=== PATIENT | male | born 1940 | race Caucasian/White ===

== ENCOUNTER → 2016-11-10 | Outpatient (CLI) | payer OTHER, BC ==
[~2016-11-10] MED LIST: CENTRUM SILVER1 EAC5 PO; COZAAR50 MG PO; FLOMAX0.4 MG PO; HYDROCODONE CO120 ML PO; LIPITOR40 MG PO; LISINOPRIL PO; LO-DOSE ASPIRIN81 M1 PO; LOSARTAN POTASS25 MG PO; MAGIC MOUTHWASH PO; OCUVITE TABLET1 EACH PO; PEPCID20 MG PO; PROSCAR5 MG PO; PROTONIX40 MG PO; SYNTHROID100 MCG PO; TOPROL XL25 MG PO; TOPROL XL50 MG PO
[2016-11-10 09:56] LABS: TYPE OF FLUID PLEURAL
[2016-11-10 10:10] LABS: BODY FLUID RBC'S 69000 /MM^3 (0-100); BODY FLUID WBC'S 1030 /MM^3 (0-500)
[2016-11-10 10:42] LABS: BODY FLUID LDH 233 IU/L; BODY FLUID PROTEIN 4.2 G/DL
[2016-11-10 11:09] LABS: BODY FLUID EOSINOPHILS 21 % (0-25); MONO RAW COUNT 76; MONONUCLEAR WBC'S 76 %; POLY RAW COUNT 3; POLYNUCLEAR WBC'S 3 % (0-25)
== END | disposition home or self-care (01) ==
LOC: RAD 08:45 → EDSTATUS 09:00
PROVIDERS: Internal Medicine Pulmonary Disease
PROC: 0W9B3ZZ Drainage of Left Pleural Cavity, Percutaneous Approach (ICD-10-PCS; principal; 2016-11-10)
DX: J90 Pleural effusion, not elsewhere classified (principal)
CPT/HCPCS: 71010; 82945; 83615 91; 84157; 87070; 87075; 87205; 88108; 89051

== ENCOUNTER → 2016-12-04 | Outpatient (CLI) | payer OTHER, BC | END | disposition home or self-care (01) | LOC: RAD 08:45 → EDSTATUS 09:00 → RAD 09:00 | PROC: 0W9B3ZZ Drainage of Left Pleural Cavity, Percutaneous Approach (ICD-10-PCS; principal; 2016-12-04) | DX: J90 Pleural effusion, not elsewhere classified (principal) | CPT/HCPCS: 88108; 88305 ==

== ENCOUNTER 2017-02-02 08:42 | Observation (INO) | payer OTHER, BC ==
[~2017-02-02] VITALS: Ht 172.7 cm; Wt 79.5 kg
[2017-02-02 09:49] LABS: CHLORIDE 102 mEq/L (99-109); POTASSIUM 3.7 mEq/L (3.7-5.4); SODIUM 141 mEq/L (136-147)
[2017-02-02 09:53] LABS: ANION GAP 13 MEQ/L (2-14); TOTAL BILIRUBIN 0.5 mg/dL (0.0-1.0)
[2017-02-02 09:55] LABS: ALKALINE PHOSPHATASE 48 IU/L (3-129); GFR ESTIMATE (CALCULATED) > 59 mL/min/
[2017-02-02 09:56] LABS: UREA NITROGEN (BUN) 16 mg/dL (9-23)
[2017-02-02 10:12] LABS: HEMATOCRIT 41.2 % (38.0-50.0); MCH 26.7 PG (29.0-34.0); MCHC 30.8 G/DL (30.0-36.0); MCV 86.7 FL (86-99); MEAN PLAT.VOLUME 8.2 uM^3 (9.0-12.4); PLATELET COUNT 262 K/uL (156-360); RBC DIS.WIDTH-CV 14.4 % (11.8-14.6); RBC DIS.WIDTH-SD 46.1 % (39-53); RED BLOOD COUNT 4.75 M/uL (4.00-5.50); WHITE BLOOD COUNT 8.5 K/uL (4.1-10.2)
[2017-02-02 10:18] LABS: GLUCOSE 119 mg/dL (70-99)
[2017-02-02 11:51] LABS: ADD MIUA? YES; BILIRUBIN NEGATIVE; BLOOD NEGATIVE; COLOR YELLOW ((YELLOW)); GLUCOSE (STRIP) NEGATIVE; KETONES 20; LEUKOCYTES NEGATIVE; NITRITE NEGATIVE; PROTEIN (STRIP) 30; UROBILINOGEN 0.2 MG/DL (0.2-1.0)
[2017-02-02 11:54] LABS: BACTERIA NONE SEEN /HPF; EPITHELIAL CELLS RARE /HPF; MUCUS TRACE /LPF; UCUL ADDED? NO; WHITE BLOOD CELLS 0-5 /HPF (0-5)
[2017-02-02] MEDS ORDERED: COZAAR25 MG PO (13:26)
[2017-02-02] MEDS ORDERED: CARVEDILOL6.25 MG PO (13:27)
[2017-02-02] MEDS ORDERED: PROTONIX20 MG PO (13:27)
[2017-02-02 14:57] VITALS: BP 132/79
[2017-02-02 20:00] VITALS: BP 132/99
[2017-02-02 20:27] LABS: HEMATOCRIT 40.8 % (38.0-50.0); MCV 86.6 FL (86-99)
[2017-02-03] VITALS: BP 138/84
[2017-02-03 04:00] VITALS: BP 119/78
[2017-02-03 08:23] LABS: HEMATOCRIT 37.2 % (38.0-50.0); MCV 88.6 FL (86-99)
[2017-02-03 09:45] VITALS: BP 122/75
[2017-02-03 11:27] VITALS: BP 125/81
[2017-02-03] MEDS ORDERED: REGLAN10 MG PO (14:15)
== END 2017-02-03 17:18 | disposition home or self-care (01) ==
LOC: EME 08:42 → 5WEST 13:50 → EDOF 14:01 → 5WEST 14:48
PROVIDERS: Emergency Medicine; Internal Medicine
DX: K92.0 Hematemesis (principal); K44.9 Diaphragmatic hernia without obstruction or gangrene; K21.9 Gastro-esophageal reflux disease without esophagitis; I10 Essential (primary) hypertension; N40.0 Benign prostatic hyperplasia without lower urinary tract symptoms; Z85.21 Personal history of malignant neoplasm of larynx; Z93.0 Tracheostomy status
CPT/HCPCS: 71020; 74020; 74177; 80053; 81003; 85014; 85018; 85027; 93005; 94644; 94799; 99281; 99285; C9113; G0378; J2405; J2765; J7030; J7042

== ENCOUNTER 2017-02-09 09:32 | Emergency (ER) | payer OTHER, BC ==
[~2017-02-09 09:32] MED LIST changes: +CARVEDILOL6.25 MG PO; +COZAAR25 MG PO; +PROTONIX20 MG PO; +REGLAN10 MG PO
== END 2017-02-09 09:50 | disposition left against medical advice (07) ==
LOC: EME 09:32
DX: R11.2 Nausea with vomiting, unspecified (principal); Z53.21 Procedure and treatment not carried out due to patient leaving prior to being seen by health care provider

== ENCOUNTER → 2017-04-03 | Outpatient (CLI) | payer OTHER, BC ==
[~2017-04-03] MED LIST changes: +AMOXICILLIN500 MG PO; +ASPIR 8181 M1 PO; +ATIVAN0.5 MG PO; +COREG3.125 M1 PO; +GAS-X125 M1 PO; +MIRALAX17 GM PO; +PERCOCET 5/31 TABLET PO; +TYLENOL PM1 CAPLET PO
== END | disposition home or self-care (01) ==
LOC: OPR 08:48 → EDSTATUS 09:00 → OPR 09:00
DX: C32.9 Malignant neoplasm of larynx, unspecified (principal); C78.2 Secondary malignant neoplasm of pleura; E78.5 Hyperlipidemia, unspecified; E03.9 Hypothyroidism, unspecified; I10 Essential (primary) hypertension; R91.1 Solitary pulmonary nodule; Z82.49 Family history of ischemic heart disease and other diseases of the circulatory system; Z82.61 Family history of arthritis; Z80.0 Family history of malignant neoplasm of digestive organs; Z79.82 Long term (current) use of aspirin
CPT/HCPCS: 77012; 85027; 85610; 85730; 88305; 88341 TC; 88342 TC; J3010

== ENCOUNTER → 2017-05-01 | Outpatient (CLI) | payer OTHER, BC ==
[~2017-05-01] MED LIST changes: +ROXICODONE5 MG PO; +TYLENOL EXTRA500 MG PO
== END | disposition home or self-care (01) ==
LOC: RAD 08:55 → EDSTATUS 09:00
PROC: 0W9B3ZZ Drainage of Left Pleural Cavity, Percutaneous Approach (ICD-10-PCS; principal; 2017-05-01)
DX: J90 Pleural effusion, not elsewhere classified (principal); C79.9 Secondary malignant neoplasm of unspecified site; C80.1 Malignant (primary) neoplasm, unspecified
CPT/HCPCS: 76942

== ENCOUNTER 2017-05-15 16:06 | Inpatient (IN) | payer OTHER, BC ==
[~2017-05-15] VITALS: Ht 170.2 cm; Wt 76.4 kg
[2017-05-15 17:39] LABS: HEMATOCRIT 38.1 % (38.0-50.0); MCH 26.9 PG (29.0-34.0); MCHC 31.2 G/DL (30.0-36.0); MCV 86.2 FL (86-99); MEAN PLAT.VOLUME 8.5 uM^3 (9.0-12.4); PLATELET COUNT 195 K/uL (156-360); RBC DIS.WIDTH-CV 14.8 % (11.8-14.6); RBC DIS.WIDTH-SD 46.6 % (39-53); RED BLOOD COUNT 4.42 M/uL (4.00-5.50)
[2017-05-15 17:41] LABS: WHITE BLOOD COUNT 1.4 K/uL (4.1-10.2)
[2017-05-15 17:51] LABS: TROP-I INTERPRETATION NEGATIVE; TROPONIN-I < 0.01 ng/mL (0.0-0.30)
[2017-05-15 18:12] LABS: ADD MIUA? NO; BILIRUBIN NEGATIVE; BLOOD NEGATIVE; COLOR YELLOW ((YELLOW)); GLUCOSE (STRIP) NEGATIVE; KETONES 20; LEUKOCYTES NEGATIVE; NITRITE NEGATIVE; PROTEIN (STRIP) 30; SPECIFIC GRAVITY 1.021 (1.000-1.030); UCUL ADDED? NO; UROBILINOGEN 0.2 MG/DL (0.2-1.0)
[2017-05-15 18:34] LABS: ABS NEUTROPHIL COUNT 0.8; ANISOCYTOSIS 1+; ATYPICAL LYMPHOCYTE 10.8 %; BAND NEUTROPHILS 5.4 % (0-8.0); EOSINOPHIL ABS CT 0.1; EOSINOPHILS 5.4 % (0-5.0); HYPOCHROMASIA 1+; INSTRUMENT ABS NEUTROPHIL CT 0.6 K/uL; LYMPHOCYTES 21.6 % (15.0-45.0); METAMYELOCYTES 0.9 %; PLAT.SUFFICIENCY ADEQUATE; SEG.NEUTROPHILS 51.4 % (46.0-76.0)
[2017-05-15] MEDS ORDERED: PROTONIX40 M1 PO (20:58)
[2017-05-15] MEDS ORDERED: CIPROFLOXACIN500 M1 PO (21:00)
[2017-05-15] MEDS ORDERED: PROMETHAZINE12.5 M1 PO (21:01)
[2017-05-15] MEDS ORDERED: DRONABINOL2.5 MG PO (21:02)
[2017-05-15] MEDS ORDERED: IMODIUM A-D2 M2 PO (21:03)
[2017-05-15] MEDS ORDERED: DERMACINRX EMP1 EACH TP (21:03)
[2017-05-15 22:12] LABS: CHLORIDE 103 mEq/L (99-109); POTASSIUM 4.3 mEq/L (3.7-5.4); SODIUM 138 mEq/L (136-147)
[2017-05-15 22:14] LABS: GLUCOSE 92 mg/dL (70-99)
[2017-05-15 22:15] LABS: ANION GAP 9 MEQ/L (2-14)
[2017-05-15 22:16] LABS: TOTAL BILIRUBIN 0.6 mg/dL (0.0-1.0)
[2017-05-15 22:18] LABS: ALKALINE PHOSPHATASE 50 IU/L (3-129); GFR ESTIMATE (CALCULATED) > 59 mL/min/
[2017-05-15 22:19] LABS: UREA NITROGEN (BUN) 9 mg/dL (9-23)
[2017-05-15 22:51] VITALS: BP 133/76
[2017-05-16 00:26] VITALS: BP 118/79
[2017-05-16 06:53] LABS: ANION GAP 9 MEQ/L (2-14); CHLORIDE 104 MEQ/L (99-109); GFR ESTIMATE (CALCULATED) > 59 mL/min/; GLUCOSE 81 mg/dL (70-99); POTASSIUM 4.4 MEQ/L (3.7-5.4); SAMPLE HEMOLYSIS CHECK 0; SAMPLE ICTERIC CHECK 0; SAMPLE LIPEMIA CHECK 0; SODIUM 139 MEQ/L (136-147); UREA NITROGEN (BUN) 8 mg/dL (9-23)
[2017-05-16 07:32] LABS: INTERNAL CONTROL VALID? YES
[2017-05-16 07:34] VITALS: BP 124/89
[2017-05-16 08:33] LABS: C DIFF TOXIN NEGATIVE (NEGATIVE); PROBE CHECK PASS; SPECIMEN PROCESSING CONTROL PASS
[2017-05-16 16:34] VITALS: BP 135/92
[2017-05-16 23:41] VITALS: BP 120/75
[2017-05-17 03:56] VITALS: BP 125/78
[2017-05-17 06:49] VITALS: BP 126/77
[2017-05-17 08:32] LABS: EOSINOPHIL (%) 3.7 % (0-5); EOSINOPHIL COUNT 0.1 K/uL (0-0.3); HEMATOCRIT 34.4 % (38.0-50.0); INSTRUMENT ABS NEUTROPHIL CT 0.5 K/uL; LYMPHOCYTE COUNT 0.6 K/uL (1.0-2.8); MCHC 31.1 G/DL (30.0-36.0); MCV 86.9 FL (86-99); MEAN PLAT.VOLUME 8.9 uM^3 (9.0-12.4); MONOCYTE (%) 10.4 % (3-12); MONOCYTE COUNT 0.1 K/uL (0-0.8); NEUTROPHIL (%) 38.9 % (45-76); NEUTROPHIL COUNT 0.5 K/uL (1.8-6.4); PLATELET COUNT 217 K/uL (156-360); RBC DIS.WIDTH-CV 14.7 % (11.8-14.6); RBC DIS.WIDTH-SD 47.3 % (39-53); RED BLOOD COUNT 3.96 M/uL (4.00-5.50)
[2017-05-17 08:35] LABS: WHITE BLOOD COUNT 1.3 K/uL (4.1-10.2)
[2017-05-17 15:43] VITALS: BP 110/58; BP 130/79
[2017-05-17 18:40] LABS: METH RESISTANT S AUREUS PCR NEGATIVE (NEGATIVE)
[2017-05-17 18:42] LABS: PROBE CHECK PASS; SPECIMEN PROCESSING CONTROL PASS
[2017-05-18 00:39] VITALS: BP 115/68
[2017-05-18 06:01] LABS: HEMATOCRIT 33.3 % (38.0-50.0); MCH 27.7 PG (29.0-34.0); MCHC 32.1 G/DL (30.0-36.0); MCV 86.3 FL (86-99); MEAN PLAT.VOLUME 8.5 uM^3 (9.0-12.4); PLATELET COUNT 194 K/uL (156-360); RBC DIS.WIDTH-CV 14.8 % (11.8-14.6); RBC DIS.WIDTH-SD 46.4 % (39-53); RED BLOOD COUNT 3.86 M/uL (4.00-5.50); WHITE BLOOD COUNT 2.1 K/uL (4.1-10.2)
[2017-05-18 06:32] LABS: ANION GAP 8 MEQ/L (2-14); CHLORIDE 106 MEQ/L (99-109); GFR ESTIMATE (CALCULATED) > 59 mL/min/; GLUCOSE 87 mg/dL (70-99); SAMPLE HEMOLYSIS CHECK 0; SAMPLE ICTERIC CHECK 0; SAMPLE LIPEMIA CHECK 0; SODIUM 141 MEQ/L (136-147); UREA NITROGEN (BUN) 5 mg/dL (9-23); VANCOMYCIN, TROUGH 17.1 MCG/ML (10-20)
[2017-05-18 07:22] VITALS: BP 135/74
[2017-05-18 14:52] VITALS: BP 130/72
[2017-05-18 16:10] VITALS: BP 133/89
[2017-05-18 23:37] VITALS: BP 119/70
[2017-05-19] MEDS ORDERED: LEVOFLOXACIN500 MG PO (13:25)
[2017-05-19] MEDS ORDERED: MYLICON,MYLANTA80 MG PO (13:25)
[2017-05-19] MEDS ORDERED: DUONEB 2.5-0.5 M3 ML AEROSOL (13:25)
== END 2017-05-19 15:53 | disposition home or self-care (01) | DRG 871 ==
LOC: EME 16:06 → 5EAST 18:32 → EDOF 18:32 → ENRESERV 18:35 → 5EAST 22:01 → ENPENDDIS 05-19 → 5EAST 05-19 15:53
PROVIDERS: Emergency Medicine; Hospitalist
DX: A41.9 Sepsis, unspecified organism (principal); J18.9 Pneumonia, unspecified organism; J20.9 Acute bronchitis, unspecified; C32.9 Malignant neoplasm of larynx, unspecified; C78.2 Secondary malignant neoplasm of pleura; C79.51 Secondary malignant neoplasm of bone; K21.9 Gastro-esophageal reflux disease without esophagitis; I10 Essential (primary) hypertension; Z93.0 Tracheostomy status; Z96.643 Presence of artificial hip joint, bilateral; D70.3 Neutropenia due to infection; R50.81 Fever presenting with conditions classified elsewhere; N40.0 Benign prostatic hyperplasia without lower urinary tract symptoms; R64 Cachexia
CPT/HCPCS: 31720; 36415; 71020; 80048; 80053; 80202; 81003; 83605; 83880; 84484; 85007; 85025; 85025 91; 85027; 87040; 87070; 87077; 87086; 87147; 87186; 87205; 87449; 87493; 87641; 93005; 99202; 99281; 99285; J0692; J1644; J2543; J3260; J3370; J7030; J7050; J7120

== ENCOUNTER 2017-09-26 20:33 | Inpatient (IN) | payer OTHER, BC ==
[~2017-09-26] VITALS: Ht 170.2 cm; Wt 70.0 kg
[~2017-09-26 20:33] MED LIST changes: +CIPRO750 MG PO; +CIPROFLOXACIN500 M1 PO; +DERMACINRX EMP1 EACH TP; +DRONABINOL2.5 MG PO; +DUONEB 2.5-0.5 M3 ML AEROSOL; +IMODIUM A-D2 M2 PO; +LEVAQUIN750 MG PO; +LEVOFLOXACIN500 MG PO; +MUCINEX DM ER1 EACH PO; +MYLICON,MYLANTA80 MG PO; +PROMETHAZINE12.5 M1 PO; +PROTONIX40 M1 PO
[2017-09-26 21:23] LABS: HEMATOCRIT 44.2 % (38.0-50.0); MCH 28.6 PG (29.0-34.0); MCHC 31.4 G/DL (30.0-36.0); MEAN PLAT.VOLUME 8.7 uM^3 (9.0-12.4); PLATELET COUNT 236 K/uL (156-360); RBC DIS.WIDTH-CV 13.4 % (11.8-14.6); RBC DIS.WIDTH-SD 45.2 % (39-53); RED BLOOD COUNT 4.86 M/uL (4.00-5.50); WHITE BLOOD COUNT 11.4 K/uL (4.1-10.2)
[2017-09-26 21:31] LABS: MCV 90.9 FL (86-99)
[2017-09-26 21:32] LABS: CHLORIDE 100 mEq/L (99-109); POTASSIUM 3.9 mEq/L (3.7-5.4); SODIUM 146 mEq/L (136-147)
[2017-09-26 21:34] LABS: GLUCOSE 152 mg/dL (70-99)
[2017-09-26 21:35] LABS: ANION GAP 17 MEQ/L (2-14)
[2017-09-26 21:36] LABS: TOTAL BILIRUBIN 0.6 mg/dL (0.0-1.0)
[2017-09-26 21:38] LABS: ALKALINE PHOSPHATASE 80 IU/L (3-129); GFR ESTIMATE (CALCULATED) > 59 mL/min/ (58.99-99999)
[2017-09-26 21:39] LABS: UREA NITROGEN (BUN) 24 mg/dL (9-23)
[2017-09-26 22:52] LABS: INTER. NORMALIZED RATIO 1.5; PROTHROMBIN TIME 17.2 SEC (10.2-12.9)
[2017-09-26 22:54] LABS: PTT 27.4 SEC (25-37)
[2017-09-26 23:03] LABS: LIPASE 12 U/L (1.0-51.0)
[2017-09-27 04:58] LABS: HEMATOCRIT 40.9 % (38.0-50.0); MCH 28.8 PG (29.0-34.0); MCHC 31.3 G/DL (30.0-36.0); MCV 91.9 FL (86-99); PLATELET COUNT 250 K/uL (156-360); RBC DIS.WIDTH-CV 13.5 % (11.8-14.6); RBC DIS.WIDTH-SD 45.3 % (39-53); RED BLOOD COUNT 4.45 M/uL (4.00-5.50); WHITE BLOOD COUNT 12.6 K/uL (4.1-10.2)
[2017-09-27 09:24] LABS: HEMATOCRIT 39.7 % (38.0-50.0); MCV 92.1 FL (86-99)
[2017-09-27 13:25] VITALS: BP 157/98
[2017-09-27 17:05] VITALS: BP 110/79
[2017-09-27 20:21] VITALS: BP 109/74
[2017-09-27 20:54] LABS: HEMATOCRIT 40.5 % (38.0-50.0); MCV 93.3 FL (86-99)
[2017-09-28 03:08] VITALS: BP 152/97
[2017-09-28 07:21] LABS: ALKALINE PHOSPHATASE 67 IU/L (3-129); ANION GAP 13 MEQ/L (2-14); CHLORIDE 104 MEQ/L (99-109); GFR ESTIMATE (CALCULATED) > 59 mL/min/ (58.99-99999); GLUCOSE 124 mg/dL (70-99); POTASSIUM 3.4 MEQ/L (3.7-5.4); SAMPLE HEMOLYSIS CHECK 0; SAMPLE ICTERIC CHECK 0; SAMPLE LIPEMIA CHECK 0; SODIUM 146 MEQ/L (136-147); TOTAL BILIRUBIN 0.8 MG/DL (0.0-1.0); UREA NITROGEN (BUN) 26 mg/dL (9-23)
[2017-09-28 08:00] VITALS: BP 111/71
[2017-09-28 08:08] LABS: EOSINOPHIL (%) 0 % (0-5); HEMATOCRIT 41.1 % (38.0-50.0); IMMATURE GRANULOCYTE (%) 0.3 % (0.0-0.7); INSTRUMENT ABS NEUTROPHIL CT 11.7 K/uL; LYMPHOCYTE COUNT 0.6 K/uL (1.0-2.8); MCH 28.3 PG (29.0-34.0); MEAN PLAT.VOLUME 8.8 uM^3 (9.0-12.4); MONOCYTE (%) 3.9 % (3-12); MONOCYTE COUNT 0.5 K/uL (0-0.8); NEUTROPHIL (%) 90.7 % (45-76); NEUTROPHIL COUNT 11.7 K/uL (1.8-6.4); PLATELET COUNT 196 K/uL (156-360); RBC DIS.WIDTH-CV 13.5 % (11.8-14.6); RED BLOOD COUNT 5.19 M/uL (4.00-5.50); WHITE BLOOD COUNT 12.9 K/uL (4.1-10.2)
== END 2017-09-28 17:17 | disposition hospice, home (50) | DRG 176 ==
LOC: EME 20:33 → EDOF 09-27 02:00 → 4SOUTH 09-27 02:00 → CANRESERV 09-27 02:02 → ENRESERV 09-27 02:02 → 4SOUTH 09-27 12:44 → CANRESERV 09-28 09:39 → ENRESERV 09-28 09:39 → CANRESERV 09-28 10:21 → ENRESERV 09-28 10:21 → CANRESERV 09-28 14:05 → 4SOUTH 09-28 17:17
PROVIDERS: Emergency Medicine; Hospitalist
DX: I26.99 Other pulmonary embolism without acute cor pulmonale (principal); R64 Cachexia; K44.0 Diaphragmatic hernia with obstruction, without gangrene; C32.9 Malignant neoplasm of larynx, unspecified; Z51.5 Encounter for palliative care; Z66 Do not resuscitate; K21.9 Gastro-esophageal reflux disease without esophagitis; K92.0 Hematemesis; G89.3 Neoplasm related pain (acute) (chronic); C78.00 Secondary malignant neoplasm of unspecified lung; Z93.0 Tracheostomy status; C79.51 Secondary malignant neoplasm of bone; I10 Essential (primary) hypertension; E03.9 Hypothyroidism, unspecified; N40.0 Benign prostatic hyperplasia without lower urinary tract symptoms; Z96.643 Presence of artificial hip joint, bilateral; R09.02 Hypoxemia; Z92.21 Personal history of antineoplastic chemotherapy; Z85.21 Personal history of malignant neoplasm of larynx
CPT/HCPCS: 31720; 71260; 74177; 80053; 83605; 83690; 85014; 85018; 85025; 85027; 85610; 85730; 87040; 94799; 99281; 99285; C9113; J2060; J2270; J2405; J2543; J2765; J7030; J7050; S0028